=== PATIENT | female | born 1935 | race Caucasian/White ===

== ENCOUNTER 2016-12-19 09:51 | Emergency (ER) | payer OTHER ==
[~2016-12-19] VITALS: Ht 167.6 cm; Wt 90.2 kg
[~2016-12-19 09:51] MED LIST: Aloe Vera PO; Ascorbic Acid,Ester- PO; Coumadin Protocol PO; Coumadin,Jantoven PO; Feosol PO; Osteo-Biflex,Flex-A- PO; Toprol XL PO; Vicodin,Norco 5/325 PO; Vitamin B Complex PO; Zantac,Taladine PO; celeBREX PO
[2016-12-19] MEDS ORDERED: ELIQUIS2.5 MG PO (10:26)
[2016-12-19] MEDS ORDERED: METOPROLOL SUCC50 MG PO (10:26)
[2016-12-19 12:23] LABS: HEMATOCRIT 41.1 % (36.0-46.0); MCH 32.9 PG (29.0-34.0); MCHC 34.1 G/DL (30.0-36.0); MCV 96.7 FL (83-99); MEAN PLAT.VOLUME 10.3 uM^3 (9.5-12.4); PLATELET COUNT 232 K/uL (156-360); RBC DIS.WIDTH-CV 12.5 % (11.8-14.6); RED BLOOD COUNT 4.25 M/uL (3.80-5.20); WHITE BLOOD COUNT 14.5 K/uL (4.1-10.2)
[2016-12-19 12:39] LABS: CHLORIDE 106 mEq/L (99-109); POTASSIUM 4.5 mEq/L (3.7-5.4); SODIUM 139 mEq/L (136-147)
[2016-12-19 12:40] LABS: GLUCOSE 130 mg/dL (70-99)
[2016-12-19 12:42] LABS: ANION GAP 10 MEQ/L (2-14)
[2016-12-19 12:44] LABS: GFR ESTIMATE (CALCULATED) > 59 mL/min/
[2016-12-19 12:45] LABS: UREA NITROGEN (BUN) 22 mg/dL (9-23)
[2016-12-19 12:47] LABS: TROP-I INTERPRETATION NEGATIVE; TROPONIN-I < 0.01 ng/mL (0.0-0.30)
[2016-12-19 19:55] VITALS: BP 109/94
== END 2016-12-19 19:57 | disposition short-term general hospital (02) ==
LOC: EME → TRA 09:51 → EME 09:51
PROVIDERS: Emergency Medicine
PROC: 3E0234Z Introduction of Serum, Toxoid and Vaccine into Muscle, Percutaneous Approach (ICD-10-PCS; principal; 2016-12-19)
DX: S52.691B Other fracture of lower end of right ulna, initial encounter for open fracture type I or II (principal); S57.81XA Crushing injury of right forearm, initial encounter; S80.811A Abrasion, right lower leg, initial encounter; V03.00XA Pedestrian on foot injured in collision with car, pick-up truck or van in nontraffic accident, initial encounter; Y92.410 Unspecified street and highway as the place of occurrence of the external cause; M25.561 Pain in right knee; T45.515A Adverse effect of anticoagulants, initial encounter; D68.32 Hemorrhagic disorder due to extrinsic circulating anticoagulants; Z86.73 Personal history of transient ischemic attack (TIA), and cerebral infarction without residual deficits; Z87.891 Personal history of nicotine dependence; Z79.01 Long term (current) use of anticoagulants
CPT/HCPCS: 71010; 73060; 73090; 73564; 80048; 81003; 84484; 85027; 93005; 99281; 99285; J0690; J2270; J2405; J7030